=== PATIENT | female | born 2000 | race Caucasian/White ===

== ENCOUNTER → 2022-04-13 | Outpatient (CLI) | payer BC ==
[2022-04-13 16:47] LABS: ALT 11 U/L (8-44); AST 16 U/L (13-35); African American GFR (CKD) 154.6 (60.0-200.0); Albumin 4.2 g/dL (3.8-4.9); Albumin/Globulin Ratio 1.79 (1.60-3.17); Alkaline Phosphatase 53 U/L (41-126); BUN/Creat Ratio 21.44 Ratio (12.00-20.00); Blood Urea Nitrogen 12.5 mg/dL (9.0-27.0); Calcium 9.7 mg/dL (8.7-10.3); Carbon Dioxide 21.5 mmol/L (20.0-27.5); Chloride 103 mmol/L (96-109); Chol/HDL Ratio 3.94 Ratio; Globulin 2.4 g/dL (1.6-3.3); Glucose 92 mg/dL (70-110); LDL Cholesterol,Calculated 50.3 mg/dL (0.0-131.0); Non-African American GFR(CKD) 133.4 (60.0-200.0); Potassium 4.8 mmol/L (3.5-5.5); Sodium 138 mmol/L (135-145); Total Protein 6.6 g/dL (6.2-8.2)
[2022-04-13 16:52] LABS: Basophils # (A) 0.03 X 10*3/uL (0.00-0.10); Basophils % (A) 0.4 %; Eosinophils # (A) 0.17 X 10*3/uL (0.04-0.35); Eosinophils % (A) 2.1 %; HCT 38.1 % (37.2-46.3); HGB 12.7 g/dL (12.0-15.0); Immature Grans, Automated 0.4 %; Lymphocytes # (A) 2.86 X 10*3/uL (0.90-5.00); Lymphocytes % (A) 35.3 %; MCH 27.4 pg (27.0-32.0); MCHC 33.3 g/dL (32.0-37.0); MCV 82.3 fL (80.0-97.0); Mean Platelet Volume 11.2 fL (9.5-12.2); Monocytes # (A) 0.39 X 10*3/uL (0.20-1.00); Monocytes % (A) 4.8 %; NRBC Per 100 WBC 0 /100 WBCS (0.0-0.0); Neutrophils # (A) 4.62 X 10*3/uL (1.80-7.70); Platelet Count 330 X 10*3/uL (140-440); RBC 4.63 X 10*6/uL (4.10-5.20); RDW 13.9 % (11.5-14.5)
== END | disposition home or self-care (01) ==
LOC: LABWHC1 10:23
PROVIDERS: ATTEND Internal Medicine
DX: I10 Essential (primary) hypertension (principal); E28.2 Polycystic ovarian syndrome
CPT/HCPCS: 36415; 80053; 80061; 82088; 82533; 83036; 84443; 85025

== ENCOUNTER → 2022-04-17 | Outpatient (CLI) | payer BC | END | disposition home or self-care (01) | LOC: LABWHC1 15:00 | PROVIDERS: ATTEND Internal Medicine | DX: I10 Essential (primary) hypertension (principal); Z53.9 Procedure and treatment not carried out, unspecified reason ==

== ENCOUNTER 2022-04-23 20:30 | Emergency (ER) | payer BC ==
[2022-04-23 20:38] VITALS: TEMP 98.4
--- NOTE | 2022-04-23 22:04 | ED ---
ENT HPI - General Chief complaint: ENT Stated complaint: Foreign object in left ear Time Seen by Provider: 04/23/22 21:28 Source: patient, RN notes reviewed Mode of arrival: ambulatory Limitations: no limitations - History of Present Illness Initial comments: This is a pleasant 21-year-old female presents to emergency complaining of muffled hearing and left ear pain for one week. Patient also has symptoms of upper respiratory infection. Patient states she has had a clear runny nose. No known fever. Patient was fully immunized as a child. No headache, no fever or chills, no changes in vision, no sinus tenderness, no purulent nasal discharge, no sore throat or difficulty with speech, no neck pain, no chest pain or shortness of breath, no abdominal pain, no nausea or vomiting, no changes in urination or bowel movements, no numbness or tingling, no extremity pain, no skin rashes or lesions. Past medical, surgical, social, and family history reviewed. - Related Data Previous Rx's Medication Instructions Recorded Amoxicillin 500 mg PO Q8H #30 capsule 04/23/22 Allergies Allergy/AdvReac Type Severity Reaction Status Date / Time No Known Allergies Allergy Verified 04/23/22 20:38 Review of Systems ROS Statement: Those systems with pertinent positive or pertinent negative responses have been documented in the HPI. ROS Other: All systems not noted in ROS Statement are negative. Past Medical History Past Medical History: No Reported History History of Any Multi-Drug Resistant Organisms: None Reported Past Surgical History: No Surgical Hx Reported Past Psychological History: No Psychological Hx Reported Smoking Status: Never smoker Past Alcohol Use History: None Reported Past Drug Use History: None Reported General Exam - General Exam Comments Initial Comments: Patient does not appear to be in any significant distress at the time I'm seeing her. Limitations: no limitations General appearance: alert, in no apparent distress Head exam: Present: atraumatic, normocephalic, normal inspection Eye exam: Present: normal appearance, PERRL, EOMI. Absent: scleral icterus, conjunctival injection, periorbital swelling ENT exam: Present: normal exam, normal oropharynx, mucous membranes dry, mucous membranes moist, normal external ear exam Expanded Ear exam: Present: normal external inspection TM/Canal exam: Erythema: Left TM (Patient has mild erythema left tympanic membrane with loss of light reflex. No evidence of perforation. No foreign body. No cerumen. No significant effusion. Right TM is pearly llanos. Good light reflex.) Mouth exam: Present: normal external inspection, other (Clear runny nose). Absent: drooling, trismus, muffled voice, tongue normal, tongue elevation Teeth exam: Present: normal inspection. Absent: dental caries, fractured tooth #, dental tenderness # Throat exam: normal inspection. negative: tonsillar erythema, tonsillomegaly, tonsillar exudate, R peritonsillar mass, L peritonsillar mass Neck exam: Present: normal inspection. Absent: tenderness, meningismus, lymphadenopathy Respiratory exam: Present: normal lung sounds bilaterally. Absent: respiratory distress, wheezes, rales, rhonchi, stridor Cardiovascular Exam: Present: regular rate, normal rhythm, normal heart sounds. Absent: systolic murmur, diastolic murmur, rubs, gallop, clicks GI/Abdominal exam: Present: soft, normal bowel sounds. Absent: distended, tenderness, guarding, rebound, rigid Extremities exam: Present: normal inspection, full ROM, normal capillary refill. Absent: tenderness, pedal edema, joint swelling, calf tenderness Back exam: Present: normal inspection Neurological exam: Present: alert, oriented X3, CN II-XII intact Psychiatric exam: Present: normal affect, normal mood Skin exam: Present: warm, dry, intact, normal color. Absent: rash Course Vital Signs 04/23/22 20:34 Temperature 98.4 F Pulse Rate 90 Respiratory 16 Rate Blood Pressure 165/101 O2 Sat by Pulse 99 Oximetry Medical Decision Making - Medical Decision Making This is a pleasant 21-year-old female presents to emergency complaining of muffled hearing and left ear pain for one week. Patient also has symptoms of upper respiratory infection. Patient states she has had a clear runny nose. No known fever. Patient was fully immunized as a child. No headache, no fever or chills, no changes in vision, no sinus tenderness, no purulent nasal discharge, no sore throat or difficulty with speech, no neck pain, no chest pain or shortness of breath, no abdominal pain, no nausea or vomiting, no changes in urination or bowel movements, no numbness or tingling, no extremity pain, no skin rashes or lesions. Past medical, surgical, social, and family history reviewed. Disposition Clinical Impression: Otitis media of left ear, Elevated blood pressure reading Disposition: HOME SELF-CARE Condition: Good Instructions (If sedation given, give patient instructions): Ear Infection (ED), Upper Respiratory Infection (ED), DASH Eating Plan (ED), Hypertension (ED) Additional Instructions: Follow-up with your regular physician as directed. Return to the ER immediately if any symptoms worsen, new symptoms arise, or any other problems develop. Antibiotics if neededas discussed Prescriptions: Amoxicillin 500 mg PO Q8H #30 capsule Is patient prescribed a controlled substance at d/c from ED?: No Referrals: Cedrick Melvin MD [Primary Care Provider] - 04/30/22 Time of Disposition: 22:04
[2022-04-23 22:17] VITALS: BP 175/83; PULSE 93; RESP 18
== END 2022-04-23 22:16 | disposition home or self-care (01) ==
LOC: EC 20:30
DX: H66.92 Otitis media, unspecified, left ear (principal); J06.9 Acute upper respiratory infection, unspecified; I10 Essential (primary) hypertension; Z88.0 Allergy status to penicillin; Z79.82 Long term (current) use of aspirin
CPT/HCPCS: 99283

== ENCOUNTER → 2022-04-23 | Outpatient (CLI) | payer BC ==
[2022-04-23 20:09] LABS: African American GFR (CKD) 162.6 (60.0-200.0); Anion Gap 11.5 mmol/L (10.00-18.00); BUN/Creat Ratio 22.6 Ratio (12.00-20.00); Blood Urea Nitrogen 11.3 mg/dL (9.0-27.0); Calcium 9.2 mg/dL (8.7-10.3); Carbon Dioxide 23.5 mmol/L (20.0-27.5); Non-African American GFR(CKD) 140.3 (60.0-200.0); Potassium 4.4 mmol/L (3.5-5.5)
== END | disposition home or self-care (01) ==
LOC: LABWHC1 11:23
PROVIDERS: ATTEND Internal Medicine
DX: I10 Essential (primary) hypertension (principal)
CPT/HCPCS: 36415; 80048; 82088; 84244

== ENCOUNTER → 2022-05-28 | Outpatient (CLI) | payer BC ==
--- NOTE | 2022-05-28 10:03 | US ---
EXAMINATION TYPE: US renal artery duplex complete DATE OF EXAM: 05/28/2022 COMPARISON: NONE CLINICAL HISTORY: I10 HYPERTENSION. MEASUREMENTS: RENAL SIZE: Rt Kidney: 13.2 x 5.8 x 5.9cm Lt Kidney: 13.0 x 5.4 x 5.5cm Aorta mid: 142 RESISTANCE INDEX Right: 0.59 Left: 0.62 RA/AO RATIO (< 3.5 ) Right: 1.9 Left: 2.3 RA VELOCITY ( < 180 cm/s) Right: 283cm/s Left: 326cm/s Morbidly obese patient. Technically difficult study. Patient has high renal artery velocities with a normal aortic/renal artery ratio. Sharp upstroke noted on segmental arteries. No parvus et tardus wav eforms. Kidney's measure large. No hydronephrosis, shadowing calculi, or contour deforming solid mass involving both kidneys. IMPRESSION: Limited examination due to patient's body habitus. Significantly elevated bilateral renal artery [place] however the renal artery to aortic ratio is within normal limits with normal resistive indices . Consider further evaluation with CTA abdomen.
== END | disposition home or self-care (01) ==
LOC: RADUSWWP 07:02
PROVIDERS: ATTEND Internal Medicine
DX: I10 Essential (primary) hypertension (principal)
CPT/HCPCS: 93975

== ENCOUNTER → 2022-06-11 | Outpatient (CLI) | payer BC ==
[2022-06-11 07:14] LABS: African American GFR (CKD) >90 (>60 ml/min/1.73 sqM); Blood Urea Nitrogen 14 mg/dL (7-17); Non-African American GFR(CKD) >90 (>60 ml/min/1.73 sqM)
--- NOTE | 2022-06-11 08:26 | CT ---
EXAMINATION TYPE: CT angio renal artery DATE OF EXAM: 06/11/2022 HISTORY: Hypertension CT DLP: 1755.0mGycm Automated Exposure Control for Dose Reduction was Utilized. CONTRAST: CTA scan of the abdomen is performed without and with IV Contrast, patient injected with 100 mL of Is ovue 370. Three-D reconstructed images created on an independent workstation and reviewed COMPARISON: Renal ultrasound May 28, 2022 FINDINGS: VASCULAR: There are 2 right-sided renal arteries including smaller caliber artery feeding the upper p ole right kidney. No significant plaque or stenosis in the renal arteries bilaterally. Patent celiac artery and SMA is identified without significant plaque or stenosis. No AAA. Patent STEVEN is seen. No s ignificant plaque or stenosis in the abdominal aorta along with common iliac artery branches. LUNG BASES: No significant abnormality is appreciated. LIVER/GB: No significant abnormality is appreciated. PANCREAS: No significant abnormality is seen. SPLEEN: No significant abnormality is seen. ADRENALS: No significant abnormality is seen. KIDNEYS: No renal calculi on noncontrast images. Kidney size is symmetric and upper limits of normal. No concerning renal masses or hydronephrosis seen bilaterally. BOWEL: Normal-appearing appendix incidentally noted. LYMPH NODES: No greater than 1cm abdominal lymph nodes are appreciated. OSSEOUS STRUCTURES: No significant abnormality is seen. OTHER: No significant additional abnormality is seen. IMPRESSION: No significant plaque or stenosis in the renal arteries bilaterally. Unremarkable study.
== END | disposition home or self-care (01) ==
LOC: RADCTMAIN 06:36
PROVIDERS: ATTEND Internal Medicine
DX: I10 Essential (primary) hypertension (principal)
CPT/HCPCS: 82565; 84520; 36415; 74175; Q9967

== ENCOUNTER → 2023-01-03 | Outpatient (CLI) | payer BC | END | disposition home or self-care (01) | LOC: LABWHC1 11:46 | PROVIDERS: ATTEND Internal Medicine | DX: Z53.9 Procedure and treatment not carried out, unspecified reason (principal) ==

== ENCOUNTER → 2023-01-03 | Outpatient (CLI) | payer BC ==
[2023-01-03 15:49] LABS: HCT 38.3 % (37.2-46.3); HGB 12.3 d/dL (12.0-15.0); MCHC 32.1 d/dL (32.0-37.0); Mean Platelet Volume 11.4 FL (9.5-12.2); NRBC Per 100 WBC 0 X 10*3/uL (0.00-0.01); Platelet Count 324 X 10*3/uL (140-440); RBC 4.56 X 10*6/uL (4.10-5.20); RDW 14.3 % (11.5-14.5); WBC 7.98 X 10*3/uL (4.50-10.00)
[2023-01-03 15:50] LABS: Appearance,Urine Clear (Clear); Bilirubin,Urine Negative (Negative); Blood,Urine Negative (Negative); Color,Urine Yellow (Yellow); Ketones,Urine Negative (Negative); Nitrite,Urine Negative (Negative); Specific Gravity,Urine 1.014 (1.001-1.030); Urobilinogen,Urine 0.2 E.U./DL
[2023-01-03 18:31] LABS: Microalbumin Creatinine Ratio <9 mg/g Cr (0-30)
[2023-01-03 21:42] LABS: ALT 55 U/L (8-44); AST 80 U/L (13-35); Albumin 4.2 d/dL (3.8-4.9); Albumin/Globulin Ratio 1.68 Ratio (1.60-3.17); Alkaline Phosphatase 49 U/L (41-126); BUN/Creat Ratio 14.83 Ratio (12.00-20.00); Blood Urea Nitrogen 8.9 mg/dL (9.0-27.0); Calcium 9.6 mg/dL (8.7-10.3); Carbon Dioxide 22.5 mmol/L (21.6-31.8); Chloride 104 mmol/L (96-109); Ferritin 56.6 ng/mL (10.0-291.0); Globulin 2.5 d/dL (1.6-3.3); Glucose 93 mg/dL (70-110); Iron 61 UG/DL (50-170); LDL Cholesterol,Calculated 59.5 mg/dL (0.0-131.0); Magnesium 1.9 mg/dL (1.5-2.4); Potassium 4.3 mmol/L (3.5-5.5); Sodium 142 mmol/L (135-145); Total Bilirubin 0.5 mg/dL (0.3-1.2); Total Iron Binding Capacity 535 UG/DL (228-460); Total Protein 6.7 d/dL (6.2-8.2)
[2023-01-09 19:42] LABS: Metanephrine, Free <25 pg/mL (< OR = 57); Normetanephrine, Free <25 pg/mL (< OR = 148); Total, Free (MN + NMN) <25 pg/mL (< OR = 205)
== END | disposition home or self-care (01) ==
LOC: LABWHC1 11:42
PROVIDERS: ATTEND Internal Medicine
DX: I10 Essential (primary) hypertension (principal); D64.9 Anemia, unspecified; N39.0 Urinary tract infection, site not specified; E83.39 Other disorders of phosphorus metabolism; R80.9 Proteinuria, unspecified
CPT/HCPCS: 36415; 80053; 80061; 81003; 82043; 82088; 82306; 82533; 82570; 82728; 83036; 83540; 83550; 83735; 83835; 84244; 84443; 85027

== ENCOUNTER → 2023-02-06 | Outpatient (CLI) | payer BC ==
--- NOTE | 2023-02-09 21:18 | MR ---
EXAMINATION TYPE: MR iac wo/w con DATE OF EXAM: 02/06/2023 COMPARISON: NONE HISTORY: 22-year-old female H93.19 TINNITUS, UNSPECIFIED EAR, Right sided hearing loss/ringing. TECHNIQUE: Multiplanar, multisequence images of the brain and brainstem were acquired before IV cont rast. Diffusion weighted imaging was performed. Additional coned-down sequences through the internal auditory canals and posterior cranial fossa before and after administration of 12.5 mL IV Gadavist. FINDINGS: Diffusion weighted images demonstrate no evidence of an acute ischemic lesion in the brain. T2/FLAIR weighted sequences show no white matter signal abnormality. Midline structures demonstrate normal morphology. The craniocervical junction is normal. Brain volume is age appropriate. There is no evidence of an acute intracranial hemorrhage, infarct, mass, mass-effect or an extra-axia l fluid collection. There is no cerebellopontine angle mass. The internal auditory canals are symmetric. Brainstem and skull base abnormalities are not seen. Post contrast images demonstrate no evidence of pathologic enhancement in the posterior cranial cee a or the internal auditory canals. There is no abnormal enhancement of the labyrinths. [id number] mucosal thickening anterior ethmoid air cells on both sides. There is a 1.2 cm mucos al retention cyst along the floor of the right maxillary sinus. Globes are intact. Mastoid air cells well pneumatized. IMPRESSION: 1. No acute intracranial abnormality seen. No abnormal white matter signal changes. 2. No specific abnormality on acoustic MRI. 3. Mild to moderate chronic ethmoid sinus disease.
== END | disposition home or self-care (01) ==
LOC: RADMRIMAIN 10:12
PROVIDERS: ATTEND Internal Medicine
DX: J32.2 Chronic ethmoidal sinusitis (principal); H93.11 Tinnitus, right ear
CPT/HCPCS: 70553; A9585

== ENCOUNTER → 2023-05-03 | Outpatient (CLI) | payer BC ==
[2023-05-03 14:22] LABS: ALT 26 U/L (8-44); AST 20 U/L (13-35); Albumin 4.5 d/dL (3.8-4.9); Albumin/Globulin Ratio 1.73 Ratio (1.60-3.17); Alkaline Phosphatase 52 U/L (41-126); BUN/Creat Ratio 16.17 Ratio (12.00-20.00); Blood Urea Nitrogen 9.7 mg/dL (9.0-27.0); Calcium 9.9 mg/dL (8.7-10.3); Carbon Dioxide 22.1 mmol/L (21.6-31.8); Chloride 102 mmol/L (96-109); Globulin 2.6 d/dL (1.6-3.3); Glucose 105 mg/dL (70-110); Potassium 4.6 mmol/L (3.5-5.5); Sodium 139 mmol/L (135-145); T4, Free (Free Thyroxine) 1.23 ng/dL (0.83-1.43); Total Bilirubin 0.5 mg/dL (0.3-1.2); Total Protein 7.1 d/dL (6.2-8.2)
[2023-05-03 15:22] LABS: Thyroid Peroxidase Antibodies 16.6 U/mL (0.0-33.0)
[2023-05-03 23:03] LABS: ACTH 3.95 pg/mL (0.00-45.99)
== END | disposition home or self-care (01) ==
LOC: LABWHC1 09:39
PROVIDERS: ATTEND Internal Medicine Endocrinology, Diabetes & Metabolism
DX: E28.2 Polycystic ovarian syndrome (principal); R79.89 Other specified abnormal findings of blood chemistry
CPT/HCPCS: 36415; 80053; 82024; 82533; 82627; 83498; 84146; 84305; 84439; 84443; 86376